=== PATIENT | female | born 1965 | race Caucasian/White ===

== ENCOUNTER 2021-01-07 06:38 | Day surgery (SDC) | payer MEDICAID, SELFPAY ==
[~2021-01-07] VITALS: Ht 157.5 cm; Wt 65.8 kg
[2021-01-07 07:16] LABS: HCG,QUAL RESULT NEGATIVE (NEGATIVE)
[2021-01-07] MEDS ORDERED: fentaNYL CITRATE/PF 100 MCG/2 ML AMP ONE (07:48)
[2021-01-07] MEDS ORDERED: SIMETHICONE 40 MG/0.6 ML ML ONE (07:48)
[2021-01-07] MEDS ORDERED: MIDAZOLAM HCL 5 MG/5 ML VIAL ONE (07:49)
[2021-01-07 14:05] VITALS: BP_SYST 100
== END 2021-01-07 10:40 | disposition home or self-care (01) ==
LOC: SDS 06:38 → SMU 06:39 → SDS 10:40
PROVIDERS: ATTEND Internal Medicine
DX: R19.5 Other fecal abnormalities (principal); D12.2 Benign neoplasm of ascending colon; K64.8 Other hemorrhoids; B19.10 Unspecified viral hepatitis B without hepatic coma; Z79.899 Other long term (current) drug therapy; Z20.822 Contact with and (suspected) exposure to COVID-19
CPT/HCPCS: 45385; 84703; 88305; 99152; G0378; J2250; J3010; U0003